=== PATIENT | male | born 1965 | race Caucasian/White ===

== ENCOUNTER 2017-05-03 08:07 | Emergency (ER) | payer OTHER ==
[~2017-05-03] VITALS: Ht 190.5 cm; Wt 86.2 kg
--- NOTE | ~2017-05-03 | EKG ---
[address] [address] ELECTROCARDIOGRAM REPORT Name: KAT CONDE Room #: PRE M.RAida#: [id number] Admission: Attend Phys: Discharge: Date of : 63 Report #: [id number] THIS REPORT FOR: //name// 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
[2017-05-03 08:44] LABS: MCH 31.4 pg (26.0-34.0); MCV 92.6 fL (80.0-100.0); RBC 5.4 mil/uL (4.50-6.00); RDW 13.7 % (10.5-14.5)
[2017-05-03 08:53] LABS: ANION GAP 9 mmol/L (7-16); BUN 16 mg/dL (7-18); CALCIUM 9.4 mg/dL (8.5-10.1); CHLORIDE 102 mmol/L (98-107); CO2 25 mmol/L (21-32); GLUCOSE 126 mg/dL (74-106); POTASSIUM 4.1 mmol/L (3.5-5.1); SODIUM 136 mmol/L (136-145)
[2017-05-03 09:01] LABS: ALBUMIN 3.9 g/dL (3.4-5.0); ALKALINE PHOSPHATASE 82 U/L (46-116); MAGNESIUM 2.2 mg/dL (1.8-2.4); SGOT 21 U/L (15-37); SGPT 13 U/L (30-65); TOTAL BILIRUBIN 0.6 mg/dL (<0.1-1.0); TOTAL PROTEIN 8.5 g/dL (6.4-8.2); TROPONIN-I < 0.04 ng/mL (<0.04-0.07)
[2017-05-03 09:48] VITALS: BP 131/91
== END 2017-05-03 09:51 | disposition home or self-care (01) ==
LOC: ER 08:07
PROVIDERS: Emergency Medicine
DX: R53.83 Other fatigue (principal); R07.9 Chest pain, unspecified; F17.210 Nicotine dependence, cigarettes, uncomplicated; F10.99 Alcohol use, unspecified with unspecified alcohol-induced disorder